=== PATIENT | male | born 2000 | race Two or more races ===

== ENCOUNTER 2022-12-16 12:06 | Emergency (ER) | payer SELFPAY ==
[~2022-12-16] VITALS: Ht 190.5 cm; Wt 100.0 kg
[2022-12-16 12:13] VITALS: BP 132/90
== END 2022-12-16 14:07 | disposition home or self-care (01) ==
LOC: EDBD 12:20 → ER 12:20
DX: Z13.9 Encounter for screening, unspecified (principal)
CPT/HCPCS: 99283